=== PATIENT | female | born 1950 | race African-American/Black ===

== ENCOUNTER 2022-10-31 10:40 | Outpatient (CLI) | payer MEDICARE, MEDICAID, SELFPAY ==
[2022-10-31 17:37] LABS: Anion Gap 4 mmol/L (8-16); Blood Urea Nitrogen 11 mg/dL (7-17); Calcium 9.3 mg/dL (8.4-10.2); Carbon Dioxide 34 mmol/L (22-30); Chloride 99 mmol/L (98-107); Estimated Glomerular Filt Rate > 60; Glucose 70 mg/dL (65-110); Potassium 3.3 mmol/L (3.4-5.0); Sodium 137 mmol/L (137-145)
[2022-10-31 18:06] LABS: Parathyroid Intact 41.8 pg/mL (7.5-53.5)
== END 2022-10-31 10:41 | disposition home or self-care (01) ==
LOC: ANHWCLAB 10:43
PROVIDERS: Visit Provider Internal Medicine Endocrinology, Diabetes & Metabolism
DX: M81.0 Age-related osteoporosis without current pathological fracture (principal); C73 Malignant neoplasm of thyroid gland; R79.89 Other specified abnormal findings of blood chemistry
CPT/HCPCS: 36415; 80048; 82306; 83970; 84439; 84443; 86800